=== PATIENT | female | born 1980 | race Caucasian/White ===

== ENCOUNTER 2023-03-13 19:03 | Inpatient (IN) | payer BC, SELFPAY ==
[2023-03-13 19:33] VITALS: BP 140/76; PULSE 69; RESP 18; TEMP 36.7; O2SAT 99
[2023-03-13 20:11] VITALS: BP 140/76; PULSE 69; RESP 18; TEMP 36.7; O2SAT 98
[2023-03-13] MEDS: trazodone 50 mg Tablet PO (20:46)
--- NOTE | 2023-03-13 20:50 | PC.NURSE ---
PRN Trazodone given for sleep as ordered per pt complaint of having a hard time falling asleep.
[2023-03-13 22:09] VITALS: BMI 23.5
--- NOTE | 2023-03-13 22:34 | PC.NURSE ---
pt admitted to [facility] from [facility] for suicide attempt via OD. pt arrived calm and cooperative. safety/body check performed with no contraband noted. pt reports intermittent si for many years states she is usually able to cope with the thoughts but has had two suicide attempts in her life counting the most recent od attempt. reports taking effexor daily and states she is med compliant. denies hi avh. denies drug or alcohol abuse. pt reports feeling like she cannot make friends here as she is an outsider . moved here from [place]. pt appears somewhat anxious and continuously wrings hands and plays in her hair while talking. she reports that she was recently told that she has borderline personality traits. oriented to unit. no other issues voiced or noted.
[2023-03-14 06:00] VITALS: RESP 17
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
[2023-03-14] MEDS: levothyroxine 125 mcg Tablet PO (13:02)
[2023-03-14 14:00] VITALS: BP 113/68; PULSE 100; RESP 17; TEMP 36.6; O2SAT 100
[2023-03-14] MEDS: venlafaxine ER (24HR) 37.5 mg Capsule PO (15:19)
[2023-03-14] MEDS: PARoxetine 20 mg Tablet PO (15:19)
[2023-03-14] MEDS: trazodone 50 mg Tablet PO (21:04)
[2023-03-14 21:55] VITALS: BP 140/60; PULSE 80; RESP 18; TEMP 36.5; O2SAT 97
[2023-03-15 06:00] VITALS: RESP 16
[2023-03-15] MEDS: ibuprofen 600 mg Tablet PO ×3 (06:39→19:55)
[2023-03-15] MEDS: levothyroxine 125 mcg Tablet PO (08:42)
[2023-03-15] MEDS: PARoxetine 20 mg Tablet PO (08:42)
[2023-03-15] MEDS: venlafaxine ER (24HR) 37.5 mg Capsule PO (08:42)
[2023-03-15 14:00] VITALS: BP 122/80; PULSE 92; RESP 18; TEMP 36.4; O2SAT 99
--- NOTE | 2023-03-15 14:15 | PC.NURSE ---
Patient reported headache and sinus pain. Administered Ibuprofen 600mg and encouraged patient to lay down. Will continue to monitor.
[2023-03-15] MEDS: fluticasone nasal spray 16gm Btl 1 SPRAY NASAL (16:39)
[2023-03-15] MEDS: acetaminophen 325 mg Tablet 650 MG PO (16:39)
--- NOTE | 2023-03-15 16:41 | PC.NURSE ---
Patient requesting Tylenol for headache. Pain 5/10. Patient administered 650mg Tylenol. Encouraged patient to return to room and rest. Will continue to monitor.
--- NOTE | 2023-03-15 19:05 | W.PM.NPUPNS ---
Subjective NPU Subjective: Patient presented today reporting that she is doing okay. She denies any issues with the medication. No issues with withdrawal from the Effexor XR or initiation of the Paxil. She reports that she is trying to make good use of her time here and trying to work on her self. We discussed taking it a day at a time as far as her discharge plan. Mental Status Exam MSE Comments: This is an overweight white female in hospital scrubs with adequate grooming and eye contact. Reddish-pink hair cut short with poignant make-up. No abnormal movements except for mild psychomotor agitation. ? Cooperative with exam in mild distress.? Speech was slightly decreased rate and volume.? Mood described as a little better, affect less anxious with less nervous laughter.? Thought process organized.? Thought content: Patient denied suicidal or homicidal ideation but does report having those thoughts leading to this hospitalization, there were no delusions reported or noted, she denied auditory or visual hallucinations.? Attention and concentration were intact and memory was mostly reliable but none were formally tested.? He is alert and oriented x3.? Insight and judgment limited impulse control impaired. Vitals/I&O/Wt Last Vital Signs Temp 97.6 F 03/15/23 14:00 Pulse 92 03/15/23 14:00 Resp 18 03/15/23 14:00 BP 122/80 03/15/23 14:00 Pulse Ox 99 03/15/23 14:00 O2 Del Method Room Air 03/14/23 21:55 Weight last 48 hrs Weight 68.039 kg A&P Assessment and plan (1) Marital/partner relational problem: (2) Major depressive disorder: (3) Cluster B personality disorder in adult: Plan This is a 42-year-old white female with a long history of being on multiple medications with depression, anger management issues with an intentional overdose on Benadryl presenting for evaluation. 1.? Continue off of medication. Decreased Effexor XR to 37.5 mg p.o. daily for 1 week and started Paxil 20 mg p.o. every morning. Start Lamictal 25 mg and titrate up to 100 to 200 mg ultimately. 2.? Encourage individual, group and milieu therapy. 3.? Continue every 15 minute checks for safety. 4.? Encourage sober living treatment after discharge at the highest level of care to which he is willing to commit. Involuntary Hold Information 96 Hour Hold: 96 Hour Involuntary Admission: No Attestations NPU Medical Necessity Statement*: Inpatient hospitalization is medically necessary and the clinically appropriate intervention at this time.? We will monitor/initiate medications and make changes as indicated. Likely length of stay 2-4 days Coding Level of Care Code Acute Code for Chg Fwd Diagnoses Marital/partner relational problem Z63.0 Major depressive disorder F32.9 Cluster B personality disorder in adult F60.9
[2023-03-15 19:36] VITALS: BP 120/80; PULSE 87; RESP 15; TEMP 37; O2SAT 98
[2023-03-15] MEDS: trazodone 50 mg Tablet PO (19:56)
[2023-03-15] MEDS: hyDROXYzine 25 mg Capsule 50 MG PO (20:08)
--- NOTE | 2023-03-15 20:10 | PC.NURSE ---
PRN Trazodone for sleep and Vistaril for anxiety given per pt request.
[2023-03-16 06:00] VITALS: BP 122/75; PULSE 77; RESP 14; TEMP 36.4; O2SAT 99; BMI 23.5
[2023-03-16] MEDS: levothyroxine 125 mcg Tablet PO (08:44)
[2023-03-16] MEDS: venlafaxine ER (24HR) 37.5 mg Capsule PO (08:44)
[2023-03-16] MEDS: PARoxetine 20 mg Tablet PO (08:44)
[2023-03-16] MEDS: fluticasone nasal spray 16gm Btl 1 SPRAY NASAL ×2 (09:03→18:16)
--- NOTE | 2023-03-16 09:03 | PC.NURSE ---
prn FLONASE NASAL SPRAY 1 SPRAY GIVEN IN EACH NARE PER PT C/O CONGESTION
--- NOTE | 2023-03-16 09:35 | W.PM.NPUPNS ---
Subjective NPU Subjective: Patient presented today reporting that she is doing better. We met with her briefly who identified that this borderline personality disorder makes sense as he looks back over the challenges of their life. She denied any issues with the initiation of the Lamictal. 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 Mental Status Exam MSE Comments: This is an overweight white female in hospital scrubs with adequate grooming and eye contact. Reddish-pink hair cut short with poignant make-up. No abnormal movements except for mild psychomotor agitation. ? Cooperative with exam in mild distress.? Speech was more normal rate and volume.? Mood described as a little better, affect less anxious with less nervous laughter.? Thought process organized.? Thought content: Patient denied suicidal or homicidal ideation but does report having those thoughts leading to this hospitalization, there were no delusions reported or noted, she denied auditory or visual hallucinations.? Attention and concentration were intact and memory was mostly reliable but none were formally tested.? He is alert and oriented x3.? Insight and judgment limited impulse control impaired. Vitals/I&O/Wt Last Vital Signs Temp 97.6 F 03/16/23 06:00 Pulse 77 03/16/23 06:00 Resp 14 03/16/23 06:00 BP 122/75 03/16/23 06:00 Pulse Ox 99 03/16/23 06:00 O2 Del Method Room Air 03/16/23 06:00 Weight last 48 hrs Weight 68.039 kg A&P Assessment and plan (1) Marital/partner relational problem: (2) Major depressive disorder: (3) Cluster B personality disorder in adult: Plan This is a 42-year-old white female with a long history of being on multiple medications with depression, anger management issues with an intentional overdose on Benadryl presenting for evaluation. 1.? Continue off of medication. Decreased Effexor XR to 37.5 mg p.o. daily for 1 week and started Paxil 20 mg p.o. every morning. Start Lamictal 25 mg and titrate up to 100 to 200 mg ultimately. 2.? Encourage individual, group and milieu therapy. 3.? Continue every 15 minute checks for safety. 4.? Encourage sober living treatment after discharge at the highest level of care to which he is willing to commit. Involuntary Hold Information 96 Hour Hold: 96 Hour Involuntary Admission: No Attestations NPU Medical Necessity Statement*: Inpatient hospitalization is medically necessary and the clinically appropriate intervention at this time.? We will monitor/initiate medications and make changes as indicated. Likely length of stay 1-3 days Coding Level of Care Code Acute Code for Chg Fwd Diagnoses Marital/partner relational problem Z63.0 Major depressive disorder F32.9 Cluster B personality disorder in adult F60.9
[2023-03-16] MEDS: lamoTRIgine 25 mg Tablet PO (12:16)
[2023-03-16 12:31] VITALS: BP 104/77; PULSE 132; RESP 16; TEMP 36.6; O2SAT 97
[2023-03-16] MEDS: ibuprofen 600 mg Tablet PO (17:10)
[2023-03-16 19:54] VITALS: BP 111/58; PULSE 82; RESP 18; TEMP 36.9; O2SAT 100
[2023-03-16] MEDS: trazodone 50 mg Tablet PO (20:13)
[2023-03-17 06:00] VITALS: RESP 16
[2023-03-17] MEDS: lamoTRIgine 25 mg Tablet PO (08:37)
[2023-03-17] MEDS: venlafaxine ER (24HR) 37.5 mg Capsule PO (08:37)
[2023-03-17] MEDS: levothyroxine 125 mcg Tablet PO (08:37)
[2023-03-17] MEDS: PARoxetine 20 mg Tablet PO (08:37)
--- NOTE | 2023-03-17 13:45 | W.PM.NPUPNS ---
Subjective NPU Subjective: Patient presented today reporting that she is doing fine with the Lamictal. Her continues to want some support in understanding what to do as a partner at home in relation to this concern for borderline personality disorder. We agreed that she would work with the treatment team and attempt to get appropriate follow-up. We discussed continued slow improvement and a plan for discharge in the morning. Mental Status Exam MSE Comments: This is an overweight white female in hospital scrubs with adequate grooming and eye contact. Reddish-pink hair cut short with poignant make-up. No abnormal movements except for mild psychomotor agitation. ? Cooperative with exam in no acute distress.? Speech was more normal rate and volume.? Mood described as I think I am feeling better, affect less anxious.? Thought process organized.? Thought content: Patient denied suicidal or homicidal ideation but does report having those thoughts leading to this hospitalization, there were no delusions reported or noted, she denied auditory or visual hallucinations.? Attention and concentration were intact and memory was mostly reliable but none were formally tested.? He is alert and oriented x3.? Insight and judgment limited, but improving, and impulse control impaired. Vitals/I&O/Wt Last Vital Signs Temp 98.8 F 03/17/23 13:56 Pulse 101 H 03/17/23 13:56 Resp 16 03/17/23 13:56 BP 127/78 03/17/23 13:56 Pulse Ox 100 03/17/23 13:56 O2 Del Method Room Air 03/17/23 13:56 Weight last 48 hrs Weight 68.039 kg A&P Assessment and plan (1) Marital/partner relational problem: (2) Major depressive disorder: (3) Cluster B personality disorder in adult: Plan This is a 42-year-old white female with a long history of being on multiple medications with depression, anger management issues with an intentional overdose on Benadryl presenting for evaluation. 1.? Continue off of medication. Decreased Effexor XR to 37.5 mg p.o. daily for 1 week and started Paxil 20 mg p.o. every morning. Started Lamictal 25 mg and titrate up to 100 to 200 mg ultimately. 2.? Encourage individual, group and milieu therapy. 3.? Continue every 15 minute checks for safety. 4.? Encourage sober living treatment after discharge at the highest level of care to which he is willing to commit. 5. Tentative plan for discharge tomorrow. Involuntary Hold Information 96 Hour Hold: 96 Hour Involuntary Admission: No Attestations NPU Medical Necessity Statement*: Inpatient hospitalization is medically necessary and the clinically appropriate intervention at this time.? We will monitor/initiate medications and make changes as indicated. Likely length of stay 1-2 days Coding Level of Care Code Acute Code for Chg Fwd Diagnoses Marital/partner relational problem Z63.0 Major depressive disorder F32.9 Cluster B personality disorder in adult F60.9
[2023-03-17 13:56] VITALS: BP 127/78; PULSE 101; RESP 16; TEMP 37.1; O2SAT 100
[2023-03-17] MEDS: ibuprofen 600 mg Tablet PO (15:00)
[2023-03-17] MEDS: fluticasone nasal spray 16gm Btl 1 SPRAY NASAL (20:10)
[2023-03-17] MEDS: trazodone 50 mg Tablet PO (20:12)
[2023-03-17 20:41] VITALS: BP 126/86; PULSE 91; RESP 18; TEMP 36.4; O2SAT 95
[2023-03-18 06:00] VITALS: RESP 18
[2023-03-18] MEDS: levothyroxine 125 mcg Tablet PO (08:08)
[2023-03-18] MEDS: venlafaxine ER (24HR) 37.5 mg Capsule PO (08:09)
[2023-03-18] MEDS: PARoxetine 20 mg Tablet PO (08:09)
[2023-03-18] MEDS: lamoTRIgine 25 mg Tablet PO (08:09)
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
[2023-03-18 12:35] VITALS: RESP 18
== END 2023-03-18 13:16 | disposition home or self-care (01) | DRG 918 ==
PROVIDERS: Admitting Provider Psychiatry & Neurology Psychiatry; Visit Provider Psychiatry & Neurology Psychiatry
DX: T45.0X2A Poisoning by antiallergic and antiemetic drugs, intentional self-harm, initial encounter (principal); F32.9 Major depressive disorder, single episode, unspecified; E05.90 Thyrotoxicosis, unspecified without thyrotoxic crisis or storm; Z63.0 Problems in relationship with spouse or partner; Z98.84 Bariatric surgery status; F60.9 Personality disorder, unspecified; Y92.019 Unspecified place in single-family (private) house as the place of occurrence of the external cause
CPT/HCPCS: 97150; 97165